=== PATIENT | female | born 1960 | race Caucasian/White ===

== ENCOUNTER → 2017-08-08 | Outpatient (CLI) | payer OTHER ==
[~2017-08-08] MED LIST: ADVIL MIGRAINE200 MG PO; NO HOME MEDICATIONS; TYLENOL 325MG325 M1 PO; TYLENOL 325MG325 MG PO
== END ==
LOC: MC.RAD 07-26 11:20
DX: Z12.31 Encounter for screening mammogram for malignant neoplasm of breast (principal)